=== PATIENT | male | born 1975 | race Caucasian/White ===

== ENCOUNTER 2018-06-14 20:16 | Emergency (ER) | payer BC ==
[~2018-06-14] VITALS: Ht 182.9 cm; Wt 128.0 kg
[~2018-06-14 20:16] MED LIST: ALBUTEROL17 GM IH; AMBIEN10 MG PO; ASPIR 8181 M1 PO; LIPITOR40 MG PO; PREDNISONE20 MG PO; PROVENTIL,2.5 MG/0.5 IH; PROVENTIL,2.5 MG/3 M IH; SYMBICORT60 INHALAT IH; TOPROL XL100 MG PO; XANAX0.5 MG PO; ZESTRIL,PRINIVI10 MG PO; ZOLOFT100 MG PO
[2018-06-14] MEDS ORDERED: VIBRAMYCIN100 MG PO ×2 (21:58→23:57)
[2018-06-15 00:17] VITALS: BP 121/78
== END 2018-06-15 00:18 | disposition home or self-care (01) ==
LOC: EME 20:16 → EXP 20:16
DX: S81.811A Laceration without foreign body, right lower leg, initial encounter (principal); S80.11XA Contusion of right lower leg, initial encounter; W22.8XXA Striking against or struck by other objects, initial encounter; Z23 Encounter for immunization; I10 Essential (primary) hypertension; J45.909 Unspecified asthma, uncomplicated; Z79.82 Long term (current) use of aspirin; Z88.0 Allergy status to penicillin; Z88.2 Allergy status to sulfonamides; Z87.891 Personal history of nicotine dependence
CPT/HCPCS: 99281; 99283